=== PATIENT | male | born 1945 | race Caucasian/White ===

== ENCOUNTER → 2021-08-21 15:30 | Outpatient (BNVA) | payer MEDICARE, OTHER, SELFPAY | PROVIDERS: Family Provider Physician Assistant; PCP Physician Assistant; Visit Provider Internal Medicine Cardiovascular Disease | DX: I77.9 Disorder of arteries and arterioles, unspecified (principal); I25.10 Atherosclerotic heart disease of native coronary artery without angina pectoris; I10 Essential (primary) hypertension; Z87.891 Personal history of nicotine dependence | CPT/HCPCS: 99214 ==

== ENCOUNTER → 2022-08-05 13:47 | Outpatient (BNVA) | payer MEDICARE, OTHER, SELFPAY | PROVIDERS: PCP Physician Assistant; Visit Provider Internal Medicine Cardiovascular Disease | DX: I25.10 Atherosclerotic heart disease of native coronary artery without angina pectoris (principal); I73.9 Peripheral vascular disease, unspecified; G47.30 Sleep apnea, unspecified; I10 Essential (primary) hypertension; E78.5 Hyperlipidemia, unspecified; E13.65 Other specified diabetes mellitus with hyperglycemia; Z87.891 Personal history of nicotine dependence; Z95.1 Presence of aortocoronary bypass graft; Z79.84 Long term (current) use of oral hypoglycemic drugs; Z79.82 Long term (current) use of aspirin | CPT/HCPCS: 99214 ==

== ENCOUNTER 2022-09-01 14:50 | Outpatient (CLI) | payer MEDICARE, OTHER, SELFPAY ==
--- NOTE | 2022-09-01 15:15 | USCV_ITS ---
Gnii Webb Age: 76 Gender: M : 1945 Exam Date: 09/01/2022 15:07 Ordering Phys: Long Elizabeth MD ([email or web address]) Technologist: Exam Location: [facility] – [place] Indication: claudication leg pain bilat Risk Factors: Previous Vascular Surgery: RIGHT LEFT BP: 150.0 / 85.00 BP: 150.0/ 80.00 0 0 Waveform Velocity (cm/s) Velocity (cm/s) Waveform Biphasic 103.9 Iliac Prox 145.7 Biphasic Biphasic 120.9 Iliac Mid 146.6 Biphasic Biphasic 103.9 Iliac Distal 97.1 Biphasic Biphasic 82.8 BUYER GRAIN 109.7 Biphasic Biphasic 67.0 SFA Prox 98.9 Biphasic Biphasic 55.2 SFA Mid 82.8 Biphasic Biphasic 86.8 SFA Dist 111.6 Biphasic Biphasic 60.5 POP 88.1 Biphasic Biphasic 73.0 VOICE WRITING REPORTER 161.9 Biphasic Biphasic 127.5 DPA 113.3 Biphasic FINDINGS non compressable ankle presures no sandro Intimal thickening and minimal plaques in the iliac and femoral arteries bilaterally. Normal Doppler flow velocities bilaterally. Biphasic waveforms bilaterally. No compressible ankle vessels CONCLUSIONS 1. Noncompressible ankle vessels bilaterally 2. Patent lower extremity arteries 3. Abnormal arterial Doppler waveforms Features suggesting extensive arterial sclerosis Dr Long Elizabeth MD [facility] (Electronically Signed) Final Date: 06 September 2022 22:50 S
== END 2022-09-01 14:51 | disposition home or self-care (01) ==
LOC: RAD 14:54
PROVIDERS: PCP Physician Assistant; Visit Provider Internal Medicine Cardiovascular Disease
DX: I73.9 Peripheral vascular disease, unspecified (principal); I77.9 Disorder of arteries and arterioles, unspecified
CPT/HCPCS: 93925

== ENCOUNTER → 2023-02-17 13:49 | Outpatient (BNVA) | payer MEDICARE, OTHER, SELFPAY | PROVIDERS: PCP Physician Assistant; Visit Provider Internal Medicine Cardiovascular Disease | DX: I25.10 Atherosclerotic heart disease of native coronary artery without angina pectoris (principal); I77.9 Disorder of arteries and arterioles, unspecified; G47.30 Sleep apnea, unspecified; I10 Essential (primary) hypertension; E78.5 Hyperlipidemia, unspecified; E13.65 Other specified diabetes mellitus with hyperglycemia; Z87.891 Personal history of nicotine dependence; Z79.84 Long term (current) use of oral hypoglycemic drugs | CPT/HCPCS: 99214 ==

== ENCOUNTER → 2023-09-27 11:06 | Outpatient (BNVA) | payer MEDICARE, OTHER, SELFPAY | PROVIDERS: PCP Physician Assistant; Visit Provider Nurse Practitioner Family | DX: I10 Essential (primary) hypertension (principal); I25.10 Atherosclerotic heart disease of native coronary artery without angina pectoris; Z87.891 Personal history of nicotine dependence | CPT/HCPCS: 99214 ==

== ENCOUNTER → 2024-03-28 11:29 | Outpatient (BNVA) | payer MEDICARE, OTHER, SELFPAY | PROVIDERS: PCP Physician Assistant; Visit Provider Internal Medicine Cardiovascular Disease | DX: I25.10 Atherosclerotic heart disease of native coronary artery without angina pectoris (principal); E78.5 Hyperlipidemia, unspecified; I10 Essential (primary) hypertension; E13.65 Other specified diabetes mellitus with hyperglycemia; G47.33 Obstructive sleep apnea (adult) (pediatric); Z99.89 Dependence on other enabling machines and devices; Z87.891 Personal history of nicotine dependence; Z79.84 Long term (current) use of oral hypoglycemic drugs | CPT/HCPCS: 99214 ==

== ENCOUNTER → 2024-08-28 10:26 | Outpatient (BNVA) | payer MEDICARE, OTHER, SELFPAY | PROVIDERS: PCP Physician Assistant; Referring Provider Physician Assistant; Visit Provider Psychiatry & Neurology Neurology | DX: G25.0 Essential tremor (principal); R26.89 Other abnormalities of gait and mobility; E55.9 Vitamin D deficiency, unspecified; G47.30 Sleep apnea, unspecified | CPT/HCPCS: 36415; 82306; 82607; 82746; 83735; 84439; 84443; 84481; 85025; 99203 ==

== ENCOUNTER 2024-08-29 15:17 | Outpatient (CLI) | payer MEDICARE, OTHER, SELFPAY ==
--- NOTE | 2024-08-29 16:00 | MR_ITS ---
WS: [id number] MRI HEAD WITH CONTRAST TECHNIQUE: Sagittal T1, T2 axial, T2 axial FLAIR, axial susceptibility weighted imaging, axial diffusion weighted images, and coronal T2 images were obtained. Pre and post-T1 axial and post T1 coronal images. ADC and FSPGR images. CLINICAL INFORMATION: R25.1 - Tremor, unspecified COMPARISON: None. FINDINGS: No evidence of restricted diffusion to suggest acute ischemia. Moderate small vessel changes with moderate parenchymal volume loss. Prominent perivascular spaces in the basal ganglia. Normal posterior fossa. Normal vascular flow voids at the skull base. No extra-axial fluid collections. Paranasal sinuses and mastoid air cells are well aerated. Normal posterior nasopharynx. Normal optic chiasm and pituitary infundibulum. Mild symmetric atrophy temporal lobes and hippocampal formations. No hemosiderin susceptibility-weighted images. No abnormal gadolinium enhancement. MR/MR head wo/w con [id number] IMPRESSION: 1. No evidence of restricted diffusion to suggest acute ischemia. 2. Moderate small vessel changes with moderate parenchymal volume loss. 3. Mild symmetric atrophy temporal lobes and hippocampal formations. 4. No hemosiderin susceptibility-weighted images. 5. No abnormal gadolinium enhancement.
[2024-08-29] MEDS: gadobenate dimeglumine 20 mL vial IV (16:23)
== END 2024-08-29 15:18 | disposition home or self-care (01) ==
PROVIDERS: PCP Physician Assistant; Visit Provider Psychiatry & Neurology Neurology
DX: R25.1 Tremor, unspecified (principal); R93.0 Abnormal findings on diagnostic imaging of skull and head, not elsewhere classified; G31.89 Other specified degenerative diseases of nervous system
CPT/HCPCS: 70553

== ENCOUNTER 2024-08-31 07:05 | Outpatient (CLI) | payer MEDICARE, OTHER, SELFPAY ==
--- NOTE | 2024-08-31 07:30 | USCV_ITS ---
Gini Webb Age: 78 Gender: M : 1945 Exam Date: 08/31/2024 07:14 Ordering Phys: Juan M Hamm MD Technologist: R Exam Location: [facility] – [place] Indication: balance disorder Risk Factors: Previous Vascular Surgery: Right Brachial BP: / Left Brachial BP: / Right Left Velocity (cm/s) Spectral Plaque Velocity (cm/s) Spectral Plaque Syst/Diast Broadening Syst/Diast Broadening 85.40/ 14.10 Prox CCA 89.30 / 15.20 81.50/ 14.90 Mid CCA 74.80 / 15.60 92.90/ 17.70 Distal CCA 67.70 / 13.90 53.00/ 14.60 Prox ICA 55.90 / 16.00 68.10/ 20.90 Mid ICA 67.00 / 18.80 44.90/ 12.20 Distal ICA 62.90 / 15.90 63.10 ECA 72.30 0.60 ICA/CCA 0.80 Antegrade Vertebral Antegrade 52.70/ 13.90 cm/s 47.50/ 15.90 cm/s Tri Subclavian Tri 56.60 97.20 FINDINGS Comparison: none available. No significant elevation of systolic or diastolic velocities. Diffuse bilateral scattered calcified plaque and intimal thickening throughout the common carotid arteries and extending through the bifurcation. Antegrade vertebral arteries. CONCLUSIONS Bilateral ICA stenosis less than 50%. Diffuse carotid atherosclerosis with no high grade stenosis. Dr. Judi Richardson DO (Electronically Signed) Final Date: 31 August 2024 07:40 S
== END 2024-08-31 07:06 | disposition home or self-care (01) ==
PROVIDERS: PCP Physician Assistant; Visit Provider Psychiatry & Neurology Neurology
DX: R26.89 Other abnormalities of gait and mobility (principal); R25.1 Tremor, unspecified; I65.23 Occlusion and stenosis of bilateral carotid arteries
CPT/HCPCS: 93880